=== PATIENT | male | born 1980 | race Caucasian/White ===

== ENCOUNTER → 2024-08-20 | Outpatient (CLI) | payer OTHER, SELFPAY ==
--- NOTE | 2024-08-20 13:58 | XR_ITS ---
Examination: Knee, left , 3 views Technique: Knee AP, lateral, oblique 3 views Date and time of exam: August 20, 2024 1419 hours INDICATIONS: Left knee pain beginning 25 years ago, knee surgery 13 years ago FINDINGS: Orthopedic pins lateral femoral condyle proximal lateral tibial metaphyseal region Moderate to advanced tricompartment osteoarthritis, most severe patellofemoral joint 11 mm ossified joint body posterior joint space IMPRESSION: Moderate to advanced tricompartment osteoarthritis
== END | disposition home or self-care (01) ==
PROVIDERS: PCP Nurse Practitioner Family; Referring Provider Nurse Practitioner Family; Visit Provider Nurse Practitioner Family
DX: M17.12 Unilateral primary osteoarthritis, left knee (principal)
CPT/HCPCS: 73562